=== PATIENT | female | born 1940 | race Caucasian/White ===

== ENCOUNTER → 2019-09-20 15:28 | Outpatient (CLI) | payer MEDICARE, BC ==
[~2019-09-20 15:28] MED LIST: ACETAMINOPHEN325 MG PO; ASPIRIN81 MG PO; CELEXA10 MG PO; COLACE100 MG PO; DEPAKOTE ER250 MG PO; DEPAKOTE250 MG PO; HALDOL DECAN50 MG/ML IM; HEALTHYLAX17 GM PO; HYDROCORTISONE30 G8 TOPICAL; IMODIUM2 MG PO; ISOSORBIDE MONO30 M1 PO; MILK OF MAGNESI30 ML PO; MYLANTA II SUSP30 ML PO; TOPROL XL25 MG PO; XARELTO15 MG PO; ZOCOR20 MG PO; ZOFRAN4 MG PO
[2019-09-20 16:19] LABS: BASOPHILS 0.1 % (0-2); EOSINOPHILS 0.2 % (0-7); HEMATOCRIT 47.4 % (36.0-48.0); IMMATURE GRANULOCYTES 0.4 % (0-5); LYMPHOCYTES 12.4 % (15-50); MCH 31.3 pg (26.0-34.0); MCHC 33.8 g/dL (31.0-37.0); MCV 92.6 fL (80.0-100.0); MEAN PLATELET VOLUME 11.7 fL (7.4-10.4); NEUTROPHILS 76.9 % (40-80); PLATELET COUNT 195 10x3/uL (130-400); RBC 5.12 10x6/uL (4.00-5.40); RDW 13.1 % (11.5-14.5); WBC 15.8 10x3/uL (4.8-10.8)
[2019-09-20 16:33] LABS: ALBUMIN 2.8 g/dL (3.4-5.0); ALKALINE PHOSPHATASE 92 U/L (46-116); ALT (SGPT) 14 U/L (10-68); BILIRUBIN - TOTAL 0.42 mg/dL (0.2-1.3); CALC OSMOLALITY 283 mosm/kg (275-300); CALCIUM 8.7 mg/dL (8.5-10.1); CARBON DIOXIDE 29.4 mmol/L (21.0-32.0); CHLORIDE - SERUM 100 mmol/L (98-107); CREATININE - SERUM 0.7 mg/dL (0.6-1.3); GLUCOSE 126 mg/dL (74-106); POTASSIUM - SERUM 3.9 mmol/L (3.5-5.1); PROTEIN - SERUM 6.7 g/dL (6.4-8.2); SODIUM 139 mmol/L (136-145); UREA NITROGEN 23 mg/dL (7-18); VALPROIC ACID (DEPAKOTE) 30.8 ug/mL (50.0-100.0); eGFR NON AFRICAN AMERICAN 86 mL/min (90-120)
== END | disposition home or self-care (01) ==
LOC: D.LABREF 15:28
PROVIDERS: ATTEND Family Medicine
DX: N39.0 Urinary tract infection, site not specified (principal)

== ENCOUNTER 2019-09-22 11:54 | Emergency (ER) | payer MEDICARE, BC ==
[~2019-09-22] VITALS: Ht 160 cm; Wt 72.7 kg
[2019-09-22 11:57] VITALS: Ht 160 cm; Wt 72.7 kg
[2019-09-22] MEDS ORDERED: ASPIRIN81 MG PO (12:01)
[2019-09-22] MEDS ORDERED: DEPAKOTE ER250 MG PO (12:02)
[2019-09-22] MEDS ORDERED: CELEXA10 MG PO (12:02)
[2019-09-22] MEDS ORDERED: ACETAMINOPHEN325 MG PO (12:02)
[2019-09-22] MEDS ORDERED: COLACE100 MG PO (12:03)
[2019-09-22] MEDS ORDERED: DEPAKOTE250 MG PO (12:03)
[2019-09-22] MEDS ORDERED: ISOSORBIDE MONO30 M1 PO (12:04)
[2019-09-22] MEDS ORDERED: HYDROCORTISONE30 G8 TOPICAL (12:04)
[2019-09-22] MEDS ORDERED: HALDOL DECAN50 MG/ML IM (12:04)
[2019-09-22] MEDS ORDERED: IMODIUM2 MG PO (12:05)
[2019-09-22] MEDS ORDERED: MYLANTA II SUSP30 ML PO (12:05)
[2019-09-22] MEDS ORDERED: MILK OF MAGNESI30 ML PO (12:05)
[2019-09-22] MEDS ORDERED: HEALTHYLAX17 GM PO (12:06)
[2019-09-22] MEDS ORDERED: ZOFRAN4 MG PO (12:06)
[2019-09-22] MEDS ORDERED: TOPROL XL25 MG PO (12:06)
[2019-09-22] MEDS ORDERED: ZOCOR20 MG PO (12:06)
[2019-09-22] MEDS ORDERED: XARELTO15 MG PO (12:07)
[2019-09-22 12:13] LABS: APPEARANCE CLEAR (CLEAR); BILIRUBIN NEGATIVE (NEGATIVE); COLOR YELLOW (YELLOW); GLUCOSE NEGATIVE (NEGATIVE); KETONE SMALL mg/dL (NEGATIVE); NITRITE NEGATIVE (NEGATIVE); PROTEIN NEGATIVE (NEGATIVE); SPECIFIC GRAVITY 1.015 (1.005-1.020); UROBILINOGEN NORMAL (NORMAL)
[2019-09-22 12:44] LABS: BASOPHILS 0.2 % (0-2); EOSINOPHILS 0.8 % (0-7); HEMATOCRIT 46.6 % (36.0-48.0); HEMOGLOBIN 15.3 g/dL (12-16); IMMATURE GRANULOCYTES 0.2 % (0-5); LYMPHOCYTES 19.9 % (15-50); MCH 30.4 pg (26.0-34.0); MCHC 32.8 g/dL (31.0-37.0); MCV 92.5 fL (80.0-100.0); MEAN PLATELET VOLUME 10.9 fL (7.4-10.4); MONOCYTES 12.3 % (2-11); NEUTROPHILS 66.6 % (40-80); PLATELET COUNT 205 10x3/uL (130-400); RBC 5.04 10x6/uL (4.00-5.40); RDW 12.9 % (11.5-14.5)
[2019-09-22 12:45] LABS: WBC 10.3 10x3/uL (4.8-10.8)
[2019-09-22 12:48] LABS: INR 1.16 (0.85-1.17); PROTIME 14.8 SECONDS (11.6-15.0)
[2019-09-22 12:49] LABS: CALC OSMOLALITY 281 mosm/kg (275-300); CALCIUM 8.3 mg/dL (8.5-10.1); CARBON DIOXIDE 32.2 mmol/L (21.0-32.0); CHLORIDE - SERUM 102 mmol/L (98-107); CREATININE - SERUM 0.8 mg/dL (0.6-1.3); GLUCOSE 92 mg/dL (74-106); POTASSIUM - SERUM 3.7 mmol/L (3.5-5.1); SODIUM 140 mmol/L (136-145); UREA NITROGEN 22 mg/dL (7-18); eGFR NON AFRICAN AMERICAN 74 mL/min (90-120)
[2019-09-22 13:06] LABS: ALBUMIN 2.6 g/dL (3.4-5.0); ALKALINE PHOSPHATASE 89 U/L (46-116); BILIRUBIN - TOTAL 0.29 mg/dL (0.2-1.3); CKMB 0.6 U/L (0.0-3.6); CREATINE KINASE 27 UL (21-215); PRO BNP 261 pg/mL (0-450); PROTEIN - SERUM 6.5 g/dL (6.4-8.2); THYROID STIMULATING HORMONE 1.33 uIU/mL (0.36-3.74)
[2019-09-22 13:07] LABS: ALT (SGPT) 19 U/L (10-68); TROPONIN-I < 0.017 ng/mL (0.000-0.060); VALPROIC ACID (DEPAKOTE) 8.6 ug/mL (50.0-100.0)
[2019-09-22 14:02] VITALS: BP 122/65
== END 2019-09-22 15:06 | disposition home or self-care (01) ==
LOC: D.ER 11:54
PROVIDERS: Family Medicine
DX: R41.82 Altered mental status, unspecified (principal); Z51.81 Encounter for therapeutic drug level monitoring

== ENCOUNTER 2019-10-03 12:55 | Emergency (ER) | payer MEDICARE, BC ==
[~2019-10-03] VITALS: Ht 160 cm; Wt 63.6 kg
[2019-10-03 13:04] VITALS: Ht 160 cm; Wt 63.6 kg
[2019-10-03 13:39] LABS: BASOPHILS 0.1 % (0-2); EOSINOPHILS 0.4 % (0-7); HEMATOCRIT 45.8 % (36.0-48.0); IMMATURE GRANULOCYTES 0.3 % (0-5); LYMPHOCYTES 20.3 % (15-50); MCH 30.4 pg (26.0-34.0); MCHC 32.8 g/dL (31.0-37.0); MCV 92.9 fL (80.0-100.0); MEAN PLATELET VOLUME 9.8 fL (7.4-10.4); MONOCYTES 7.1 % (2-11); NEUTROPHILS 71.8 % (40-80); RBC 4.93 10x6/uL (4.00-5.40)
[2019-10-03 13:40] LABS: PLATELET COUNT 324 10x3/uL (130-400)
[2019-10-03 13:49] LABS: CALC OSMOLALITY 283 mosm/kg (275-300); CALCIUM 8.6 mg/dL (8.5-10.1); CARBON DIOXIDE 30.1 mmol/L (21.0-32.0); CHLORIDE - SERUM 106 mmol/L (98-107); CREATININE - SERUM 0.9 mg/dL (0.6-1.3); GLUCOSE 98 mg/dL (74-106); POTASSIUM - SERUM 4.1 mmol/L (3.5-5.1); SODIUM 142 mmol/L (136-145); UREA NITROGEN 14 mg/dL (7-18); eGFR NON AFRICAN AMERICAN 64 mL/min (90-120)
[2019-10-03 13:50] LABS: APTT 32.5 SECONDS (22.8-39.4); INR 0.97 (0.85-1.17); PROTIME 12.8 SECONDS (11.6-15.0)
[2019-10-03 14:04] LABS: ALBUMIN 2.9 g/dL (3.4-5.0); ALKALINE PHOSPHATASE 84 U/L (30-120); ALT (SGPT) 15 U/L (10-68); BILIRUBIN - TOTAL 0.24 mg/dL (0.2-1.3); CKMB 1.2 U/L (0.0-3.6); CREATINE KINASE 25 UL (21-215); MAGNESIUM - SERUM 1.8 mg/dL (1.8-2.4); PROTEIN - SERUM 6.9 g/dL (6.4-8.2); TROPONIN-I 0.051 ng/mL (0.000-0.060)
[2019-10-03 16:15] VITALS: BP 110/64
== END 2019-10-03 16:52 | disposition other institution (70) ==
LOC: D.ER 12:55
PROVIDERS: Family Medicine
DX: R07.89 Other chest pain (principal); F03.90 Unspecified dementia, unspecified severity, without behavioral disturbance, psychotic disturbance, mood disturbance, and anxiety; I10 Essential (primary) hypertension; I20.9 Angina pectoris, unspecified; Z95.1 Presence of aortocoronary bypass graft

== ENCOUNTER 2019-11-02 01:29 | Emergency (ER) | payer MEDICARE, BC ==
[~2019-11-02] VITALS: Ht 160 cm; Wt 72.7 kg
[2019-11-02 01:40] VITALS: Ht 160 cm; Wt 72.7 kg
[2019-11-02 01:49] LABS: BASOPHILS 0.1 % (0-2); EOSINOPHILS 0.9 % (0-7); HEMATOCRIT 42.7 % (36.0-48.0); HEMOGLOBIN 14.2 g/dL (12-16); IMMATURE GRANULOCYTES 0.4 % (0-5); LYMPHOCYTES 24.5 % (15-50); MCH 29.6 pg (26.0-34.0); MCHC 33.3 g/dL (31.0-37.0); MCV 89.1 fL (80.0-100.0); MEAN PLATELET VOLUME 10.5 fL (7.4-10.4); MONOCYTES 7.6 % (2-11); NEUTROPHILS 66.5 % (40-80); PLATELET COUNT 284 10x3/uL (130-400); RBC 4.79 10x6/uL (4.00-5.40); RDW 12.6 % (11.5-14.5); WBC 10.2 10x3/uL (4.8-10.8)
[2019-11-02 01:50] LABS: BILIRUBIN NEGATIVE (NEGATIVE); GLUCOSE NEGATIVE (NEGATIVE); KETONE NEGATIVE (NEGATIVE); NITRITE NEGATIVE (NEGATIVE); SPECIFIC GRAVITY 1.015 (1.005-1.020); UROBILINOGEN NORMAL (NORMAL); WHITE CELLS - URINE 0-5 /hpf (NEGATIVE)
[2019-11-02 01:51] LABS: AMORPHOUS SEDIMENT <1+ /lpf (NONE SEEN); BACTERIA NONE SEEN /hpf (NEGATIVE); EPITHELIAL CELLS NSEEN /hpf (0-5); RED CELLS - URINE >50 /hpf (0-5)
[2019-11-02 01:52] LABS: CALC OSMOLALITY 283 mosm/kg (275-300); CHLORIDE - SERUM 103 mmol/L (98-107); CREATININE - SERUM 0.6 mg/dL (0.6-1.3); GLUCOSE 110 mg/dL (74-106); POTASSIUM - SERUM 3.8 mmol/L (3.5-5.1); SODIUM 141 mmol/L (136-145); UREA NITROGEN 17 mg/dL (7-18); eGFR NON AFRICAN AMERICAN > 90 mL/min (90-120)
[2019-11-02 02:01] LABS: ALBUMIN 2.8 g/dL (3.4-5.0); ALKALINE PHOSPHATASE 154 U/L (30-120); ALT (SGPT) 15 U/L (10-68); AMYLASE - SERUM 35 U/L (25-115); BILIRUBIN - TOTAL 0.47 mg/dL (0.2-1.3); LIPASE 109 U/L (73-393); PROTEIN - SERUM 7.2 g/dL (6.4-8.2); TROPONIN-I < 0.017 ng/mL (0.000-0.060)
[2019-11-02 02:34] LABS: INR 1.57 (0.85-1.17); PROTIME 18.6 SECONDS (11.6-15.0)
[2019-11-02 02:35] LABS: APTT 42.8 SECONDS (22.8-39.4)
[2019-11-02 05:42] VITALS: BP 132/68
== END 2019-11-02 05:48 | disposition home or self-care (01) ==
LOC: D.ER 01:29
PROVIDERS: Family Medicine
DX: R31.0 Gross hematuria (principal); I25.119 Atherosclerotic heart disease of native coronary artery with unspecified angina pectoris; Z95.1 Presence of aortocoronary bypass graft; K21.9 Gastro-esophageal reflux disease without esophagitis

== ENCOUNTER 2019-11-11 14:47 | Emergency (ER) | payer MEDICARE, BC ==
[~2019-11-11] VITALS: Ht 160 cm; Wt 59.1 kg
[2019-11-11 14:55] VITALS: Ht 160 cm; Wt 59.1 kg
[2019-11-11 16:31] LABS: BASOPHILS 0.2 % (0-2); EOSINOPHILS 0.9 % (0-7); HEMOGLOBIN 12.6 g/dL (12-16); IMMATURE GRANULOCYTES 0.3 % (0-5); LYMPHOCYTES 17.5 % (15-50); MCH 29.2 pg (26.0-34.0); MCHC 32.3 g/dL (31.0-37.0); MCV 90.5 fL (80.0-100.0); MEAN PLATELET VOLUME 10.1 fL (7.4-10.4); MONOCYTES 5.6 % (2-11); NEUTROPHILS 75.5 % (40-80); PLATELET COUNT 264 10x3/uL (130-400); RBC 4.31 10x6/uL (4.00-5.40); RDW 13.7 % (11.5-14.5); WBC 10.8 10x3/uL (4.8-10.8)
[2019-11-11 16:41] LABS: CALC OSMOLALITY 284 mosm/kg (275-300); CALCIUM 8.4 mg/dL (8.5-10.1); CARBON DIOXIDE 29.4 mmol/L (21.0-32.0); CHLORIDE - SERUM 106 mmol/L (98-107); CREATININE - SERUM 0.7 mg/dL (0.6-1.3); GLUCOSE 122 mg/dL (74-106); POTASSIUM - SERUM 3.9 mmol/L (3.5-5.1); SODIUM 142 mmol/L (136-145); UREA NITROGEN 15 mg/dL (7-18); eGFR NON AFRICAN AMERICAN 86 mL/min (90-120)
[2019-11-11 16:48] LABS: ALBUMIN 2.6 g/dL (3.4-5.0); ALKALINE PHOSPHATASE 108 U/L (30-120); ALT (SGPT) 14 U/L (10-68); BILIRUBIN - TOTAL 0.29 mg/dL (0.2-1.3); PROTEIN - SERUM 6.4 g/dL (6.4-8.2)
[2019-11-11 22:02] VITALS: BP 112/77
== END 2019-11-11 22:04 ==
LOC: D.ER 14:47
PROVIDERS: Family Medicine
DX: S00.03XA Contusion of scalp, initial encounter (principal); S00.01XA Abrasion of scalp, initial encounter; W05.0XXA Fall from non-moving wheelchair, initial encounter; Z95.1 Presence of aortocoronary bypass graft; K21.9 Gastro-esophageal reflux disease without esophagitis

== ENCOUNTER 2020-02-19 23:58 | Emergency (ER) | payer MEDICARE, BC ==
[~2020-02-19] VITALS: Ht 160 cm; Wt 63.6 kg
[2020-02-20] VITALS: Ht 160 cm; Wt 63.6 kg
[2020-02-20] MEDS ORDERED: BAYER CHEWABLE81 MG PO (00:11)
[2020-02-20] MEDS ORDERED: CELEXA20 MG PO (00:12)
[2020-02-20] MEDS ORDERED: HALDOL DECAN50 MG/ML IM (00:13)
[2020-02-20] MEDS ORDERED: ISOSORBIDE MONO30 M1 PO (00:13)
[2020-02-20] MEDS ORDERED: TOPROL XL25 MG PO (00:14)
[2020-02-20] MEDS ORDERED: ZOCOR20 MG PO (00:14)
[2020-02-20] MEDS ORDERED: XARELTO15 MG PO (00:15)
[2020-02-20] MEDS ORDERED: FEXOFENADINE HC60 MG PO (00:16)
[2020-02-20] MEDS ORDERED: MUCINEX600 MG PO (00:16)
[2020-02-20] MEDS ORDERED: COLACE100 MG PO (00:17)
[2020-02-20] MEDS ORDERED: ACETAMINOPHEN325 MG PO (00:17)
[2020-02-20] MEDS ORDERED: HYDROCORTISONE30 G8 TOPICAL (00:18)
[2020-02-20] MEDS ORDERED: IMODIUM2 MG PO ×2 (00:19→00:21)
[2020-02-20] MEDS ORDERED: CLARITIN 10 MG10 MG PO (00:22)
[2020-02-20] MEDS ORDERED: MILK OF MAGNESI30 ML PO (00:22)
[2020-02-20] MEDS ORDERED: MYLANTA II SUSP30 ML PO (00:23)
[2020-02-20] MEDS ORDERED: ZOFRAN ODT4 MG/UDTAB PO (00:24)
[2020-02-20] MEDS ORDERED: MIRALAX17 GM PO (00:24)
[2020-02-20 01:44] VITALS: BP 124/63
== END 2020-02-20 01:44 | disposition home or self-care (01) ==
LOC: D.ER 23:58
DX: S01.01XA Laceration without foreign body of scalp, initial encounter (principal); W05.0XXA Fall from non-moving wheelchair, initial encounter; Y93.9 Activity, unspecified; Y92.9 Unspecified place or not applicable; K21.9 Gastro-esophageal reflux disease without esophagitis; F03.90 Unspecified dementia, unspecified severity, without behavioral disturbance, psychotic disturbance, mood disturbance, and anxiety; Z95.1 Presence of aortocoronary bypass graft